=== PATIENT | female | born 2000 ===

== ENCOUNTER 2022-03-05 20:37 | Emergency (ER) | payer SELFPAY ==
[2022-03-05 20:43] VITALS: BP 120/82
[2022-03-05] MEDS ORDERED: SODIUM CHLORIDE 0.9% 1000 ML 1,000 ML IV ONE (23:38)
[2022-03-05] MEDS ORDERED: ONDANSETRON 4 MG/2 ML INJ IV ONE (23:38)
[2022-03-06 00:16] LABS: Basophils % (Auto) 0.3 % (0.0-1.8); Eosinophils % (Auto) 0.1 % (0.0-4.3); Hematocrit 38.4 % (30.3-42.9); Hemoglobin 12.5 gm/dl (10.1-14.3); Lymphocytes # (Auto) 2.4 K/mm3 (1.2-5.4); Lymphocytes % (Auto) 20.5 % (13.4-35.0); Mean Corpuscular HGB Conc 33 % (30-34); Mean Corpuscular Volume 88 fl (79-97); Monocytes # (Auto) 0.6 K/mm3 (0.0-0.8); Monocytes % (Auto) 5.1 % (0.0-7.3); Platelet Count 187 K/mm3 (140-440); Red Blood Count 4.34 M/mm3 (3.65-5.03); Red Cell Distribution Width 13.5 % (13.2-15.2)
[2022-03-06 00:34] LABS: Alanine Aminotransferase 9 units/L (7-56); Albumin 4.8 g/dL (3.9-5); Blood Urea Nitrogen 8 mg/dL (7-17); Calcium 9.6 mg/dL (8.4-10.2); Hemolysis Index 6
--- NOTE | 2022-03-06 00:42 | Emergency Department Report ---
ED Abdominal Pain HPI - General Chief Complaint: Abdominal Pain Stated Complaint: ABDOMINAL PAIN Time Seen by Provider: 03/05/22 23:25 Source: patient, EMS Mode of arrival: Stretcher Limitations: Language Barrier - History of Present Illness Initial Comments: Patient presents for bilateral lower abdominal pain for 3 days with nausea vomiting. There is been no fever or chills. There is malaise.. Last menstrual cycle 2 weeks ago. Patient endorses not sexually active. Symptoms are exacerbated by p.o. intake. Symptoms are relieved by nothing tried. 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 MD Complaint: abdominal pain - Related Data Previous Rx's Medication Instructions Recorded Last Taken Type Dicyclomine [Bentyl] 10 mg PO QID PRN #12 capsule 03/06/22 Unknown Rx Ondansetron [Zofran Odt] 4 mg PO Q8HR PRN #12 tab.rapdis 03/06/22 Unknown Rx polyethylene glycoL 3350 [Miralax 17 gm PO BID PRN #14 packet 03/06/22 Unknown Rx 3350] Allergies Allergy/AdvReac Type Severity Reaction Status Date / Time No Known Allergies Allergy Unverified 03/05/22 20:43 ED Review of Systems ROS: Stated complaint: ABDOMINAL PAIN Other details as noted in HPI Constitutional: malaise. denies: chills, fever Eyes: denies: eye pain, eye discharge, vision change ENT: denies: ear pain, throat pain Respiratory: denies: cough, shortness of breath, wheezing Cardiovascular: denies: chest pain, palpitations Endocrine: no symptoms reported Gastrointestinal: abdominal pain, nausea, vomiting. denies: diarrhea, constipation, hematemesis, melena, hematochezia Genitourinary: denies: urgency, dysuria, frequency, hematuria, discharge, abnormal menses, dyspareunia Musculoskeletal: back pain Skin: denies: rash, lesions Neurological: denies: headache, weakness, paresthesias, vertigo Psychiatric: denies: anxiety, depression Hematological/Lymphatic: denies: easy bleeding, easy bruising ED Past Medical Hx - Past Medical History Previous Medical History?: No - Surgical History Past Surgical History?: No - Medications Home Medications: Home Medications Medication Instructions Recorded Confirmed Last Taken Type Dicyclomine [Bentyl] 10 mg PO QID PRN #12 capsule 03/06/22 Unknown Rx Ondansetron [Zofran Odt] 4 mg PO Q8HR PRN #12 tab.rapdis 03/06/22 Unknown Rx polyethylene glycoL 3350 [Miralax 17 gm PO BID PRN #14 packet 03/06/22 Unknown Rx 3350] ED Physical Exam - General Limitations: Language Barrier General appearance: alert, in no apparent distress - Head Head exam: Present: normocephalic, normal inspection - Eye Eye exam: Present: normal appearance, EOMI Pupils: Present: normal accommodation - ENT ENT exam: Present: mucous membranes moist - Neck Neck exam: Present: normal inspection, full ROM. Absent: tenderness, lymphadenopathy - Respiratory Respiratory exam: Present: normal lung sounds bilaterally. Absent: respiratory distress, wheezes, stridor, chest wall tenderness - Cardiovascular Cardiovascular Exam: Present: regular rate, normal rhythm. Absent: systolic murmur, diastolic murmur, rubs, gallop - GI/Abdominal GI/Abdominal exam: Present: soft, tenderness (Bilateral lower abdominal suprapubic region tenderness to deep palpation. There is no rebound no thrill no bruit), normal bowel sounds. Absent: distended, guarding, rebound, bruit, hernia - Expanded GI/Abdominal Exam Expanded GI/Abdominal exam: Absent: psoas sign, obturator sign, heel tap sign, Huff's sign, Rovsing's sign, tenderness at Mcburney's Point, ascites - Rectal Rectal exam: Absent: deferred - Extremities Exam Extremities exam: Present: normal inspection, full ROM, normal capillary refill. Absent: tenderness - Back Exam Back exam: Present: normal inspection, full ROM. Absent: tenderness, CVA tenderness (R), CVA tenderness (L) - Neurological Exam Neurological exam: Present: alert, oriented X3, CN II-XII intact, normal gait, reflexes normal. Absent: motor sensory deficit - Expanded Neurological Exam Expanded Patient oriented to: Present: person, place, time Speech: Present: fluid speech ED Course Vital Signs 03/05/22 20:42 Temperature 98.4 F Pulse Rate 108 H Respiratory 16 Rate Blood Pressure 120/82 [Right] O2 Sat by Pulse 100 Oximetry ED Medical Decision Making - Lab Data Result diagrams: 03/05/22 23:46 03/05/22 23:46 Labs 03/05/22 03/05/22 03/06/22 23:46 23:46 Unknown WBC 11.9 H RBC 4.34 Hgb 12.5 Hct 38.4 MCV 88 MCH 29 MCHC 33 RDW 13.5 Plt Count 187 Lymph % (Auto) 20.5 Crisp % (Auto) 5.1 Eos % (Auto) 0.1 Baso % (Auto) 0.3 Lymph # (Auto) 2.4 Crisp # (Auto) 0.6 Eos # (Auto) 0.0 Baso # (Auto) 0.0 Seg Neutrophils % 74.0 H Seg Neutrophils # 8.8 H Sodium 141 Potassium 3.8 Chloride 102.2 Carbon Dioxide 23 Anion Gap 20 BUN 8 Creatinine 0.7 Estimated GFR > 60 BUN/Creatinine Ratio 11 Glucose 94 Calcium 9.6 Total Bilirubin 0.90 AST 17 ALT 9 Alkaline Phosphatase 51 Total Protein 6.9 Albumin 4.8 Albumin/Globulin Ratio 2.3 Lipase 21 Urine Color Yellow Urine Turbidity Slightly-cloudy Urine pH 6.0 Ur Specific [place] 1.023 Urine Protein 30 mg/dl Urine Glucose (UA) Neg Urine Ketones Neg Urine Blood Neg Urine Nitrite Neg Urine Bilirubin Neg Urine Urobilinogen < 2.0 Ur Leukocyte Esterase Tr Urine WBC (Auto) 5.0 Urine RBC (Auto) 7.0 U Epithel Cells (Auto) 31.0 H Urine Bacteria (Auto) 4+ Urine Mucus 3+ Urine HCG, Qual Negative - Radiology Data Radiology results: report reviewed, image reviewed XR abdomen 1V ap INDICATION / CLINICAL INFORMATION: abd pain. COMPARISON: None available. FINDINGS: TUBES / LINES: None. CHEST: Visualized chest shows no significant abnormality. BOWEL GAS PATTERN: No significant abnormality. FREE AIR / EXTRALUMINAL GAS: None seen. ADDITIONAL FINDINGS: No significant additional findings. IMPRESSION: 1. No significant abnormality. Signer Name: Skyler Mckeon MD Signed: 03/06/2022 5:45 AM Workstation Name: [id number] Transcribed By: JS Dictated By: SKYLER MCKEON MD Electronically Authenticated By: SKYLER MCKEON MD Signed Date/Time: 03/06/22544 DD/ 3 TD/TT: - Medical Decision Making KUB normal no abnormal gas pattern. There is moderate stool loading. Labs are noted normal. Leukocytes noted for UA however there is epithelial present. Patient advised symptoms are relieved there is no nausea no vomiting no abdominal pain at this time. Patient will be DC'd home with RX. Will hydrate, and follow-up primary care doctor in 2 to 3 days. pt dc'd to home in stable condition at this time. Critical care attestation.: If time is entered above; I have spent that time in minutes in the direct care of this critically ill patient, excluding procedure time. ED Disposition Clinical Impression: Abdominal pain Qualifiers: Abdominal location: lower abdomen, unspecified Qualified Code(s): R10.30 - Lower abdominal pain, unspecified Constipation Qualifiers: Constipation type: unspecified constipation type Qualified Code(s): K59.00 - Constipation, unspecified Disposition: HOME / SELF CARE / HOMELESS Is pt being admited?: No Does the pt Need Aspirin: No Condition: Stable Instructions: Abdominal Pain (ED), Constipation, Adult, [id number], Abdominal Pain, Adult, [id number], Rehydration, Adult Additional Instructions: Take medications as prescribed, hydrate as directed. Follow-up with your doctor in 2 to 3 days. Return to emergency department should symptoms worsen. Prescriptions: Dicyclomine [Bentyl] 10 mg PO QID PRN #12 capsule PRN Reason: abdominal spasm polyethylene glycoL 3350 [Miralax 3350] 17 gm PO BID PRN #14 packet PRN Reason: Constipation Ondansetron [Zofran Odt] 4 mg PO Q8HR PRN #12 tab.rapdis PRN Reason: Nausea Referrals: RICHARD WATT MD [Staff Physician] - 3-5 Days Forms: Work/School Release Form(ED) Time of Disposition: 06:03 Print Language: YAKUT
[2022-03-06 00:52] LABS: BUN/Creatinine Ratio 11
[2022-03-06 03:47] LABS: Bacteria,Urine 4+ /HPF (Negative); Bilirubin,Urine NEG (Negative); Blood,Urine NEG (Negative); Color,Urine Yellow (Yellow); Mucus,Urine 3+ /HPF; Urobilinogen,Urine < 2.0 mg/dL (<2.0)
[2022-03-06 03:50] LABS: HCG Qualitative,Urine Negative (Negative)
--- NOTE | 2022-03-06 05:49 | XRay Report ---
XR abdomen 1V ap INDICATION / CLINICAL INFORMATION: abd pain. COMPARISON: None available. FINDINGS: TUBES / LINES: None. CHEST: Visualized chest shows no significant abnormality. BOWEL GAS PATTERN: No significant abnormality. FREE AIR / EXTRALUMINAL GAS: None seen. ADDITIONAL FINDINGS: No significant additional findings. IMPRESSION: 1. No significant abnormality. Signer Name: Bear Toro MD Signed: 03/06/2022 5:45 AM Workstation Name: [id number]
== END 2022-03-06 06:42 | disposition home or self-care (01) ==
LOC: ED 20:37
DX: R10.30 Lower abdominal pain, unspecified (principal); K59.00 Constipation, unspecified
CPT/HCPCS: 36415; 74018; 80053; 81001; 81025; 83690; 85025; 96361; 96374; 99284; J2405; J7030